=== PATIENT | female | born 1995 ===

== ENCOUNTER → 2024-08-05 | Day surgery (SDC) | payer OTHER ==
[~2024-08-05] MED LIST: CEFAZOLIN SODIUM 1,000 MG VIAL IV ONE; DOXYCYCLINE HY100 M2 PO; IBU600 MG PO; METHYLERGONOVINE MALEATE 0.2 MG/ML AMPUL IM ONE; POVIDONE-IODINE 118 ML BOTT TOP ONE
== END | disposition home or self-care (01) ==
LOC: CIR.AMB 07:30
PROVIDERS: ATTEND Obstetrics & Gynecology
DX: O02.1 Missed abortion (principal)